=== PATIENT | male | born 2000 | race Two or more races ===

== ENCOUNTER 2024-05-23 11:55 | Emergency (ER) | payer MEDICAID, SELFPAY ==
--- NOTE | 2024-05-23 12:09 | XR_ITS ---
Examination: CT lumbar spine, without contrast. 2-D sagittal reconstructions. 2-D coronal reconstructions. 3-D reconstructions. Date and time of exam:May 23, 2023 1258 hours INDICATIONS: Onset low back pain radiating to the right leg beginning several weeks ago CTDI: vol (mGy):21.7 DLP: (mGycm):677 Technique: Multiple 1.25 mm axial sections of the lumbar spine without intravenous contrast have been obtained. 2-D sagittal and coronal reconstructions have been obtained. 3-D reconstructions have been obtained. Low dose protocols were performed. One or more of the following dose reduction techniques were used; automated exposure control, adjustment of the mA and/or KV according to patient size, use of iterative reconstruction technique. Findings: Adequate alignment lumbar vertebral bodies on the lateral view No lumbar acute fracture Mild diffuse lumbar disc narrowing No spondylolisthesis L5-S1 4 mm central lumbar disc bulge L4-L5 no disc protrusion L3-L4 no disc protrusion L2-L3 no disc protrusion L1-L2 no disc protrusion IMPRESSION: L5-S1 4 mm central lumbar disc bulge MRI lumbar spine follow-up would best assess for soft tissue acquired spinal stenosis producing radicular right leg symptoms
[2024-05-23 12:10] VITALS: BP 150/108; PULSE 103; RESP 20; TEMP 36.5; O2SAT 98; BMI 26.8
[2024-05-23] MEDS: LIDOCAINE 5% 1 PATCH 2 PATCH TOP (12:41)
[2024-05-23] MEDS: HYDROcodone/APAP 5/325 TABLET 2 TAB PO (12:41)
[2024-05-23 14:27] VITALS: BP 134/83; PULSE 82; RESP 18; TEMP 36.6; O2SAT 99
--- NOTE | 2024-05-23 15:21 | EDNOTE_ITS ---
ED General RME/HPI General Chief complaint: Hip Injury/Pain Stated complaint: Right hip pain, right leg pain x 2 months Time Seen by Provider: 05/23/24 11:58 Arrival date/time: 05/23/24 11:55 RME / HPI RME / HPI narrative: This section includes all my notes and documentations, including HPI, PE, and ED course. Lyndon Vazquez MD HPI: 24-year-old male here to be evaluated with a couple month history of right-sided low back pain. Worse in the past few days with radiation into the right lower extremity. Reports sharp and stabbing pain and burning. Reports numbness and tingling. No paralysis. No loss of control of bladder or bowels. No saddle numbness. No other complaints. ROS: Gastrointestinal: negative except as documented in HPI. Genitourinary: negative except as documented in HPI. Musculoskeletal: negative except as documented in HPI. Skin: negative except as documented in HPI. Neurological: negative except as documented in HPI. Physical Exam: General: Alert and oriented. In obvious pain. Eyes: Conjunctivae and lids clear. Lungs: No respiratory distress. Abdomen: Soft and nontender. Normal bowel sounds. No distension. No rebound or guarding. Back: Equivocal lumbar midline tenderness. Limited range of motion due to pain. Right straight leg raise equivocal. Legs: No clubbing, cyanosis, edema. Skin: Warm and dry. Neuro: Alert and oriented X 3. No peripheral motor deficits. My review of the lumbar spine CT report is L5-S1 disc bulging. At this point, diagnoses include sciatica. Treatment here included [place] and lidocaine patches. He felt better. Recommended more outpatient care and workup. Based on my best medical judgment, made decision no further evaluation or treatment indicated at this time. Patient understands and agrees to the discharge instructions customized and printed, see below. Lyndon Vazquez MD Related Data Previous Rx's ?Medication ?Instructions ?Recorded albuterol sulfate 90 mcg/actuation 2 puff inhalation QID #8.5 grams 12/08/21 aerosol inhaler cetirizine 10 mg capsule (Zyrtec) 10 mg PO QDAY PRN allergy symptoms 12/08/21 #30 caps sodium chloride 0.65 % nasal spray 2 spray intranasal QID #88 mL 12/08/21 aerosol (Saline Nasal) acetaminophen 300 mg-codeine 30 mg 2 tab PO TID PRN pain #20 tabs 05/23/24 tablet lidocaine 5 % topical patch 2 patch topical QDAY PRN pain #30 05/23/24 (Lidoderm) ea Allergies Allergy/AdvReac Type Severity Reaction Status Date / Time No Known Allergies Allergy Verified 11/14/22 14:37 Course Quality Measures none Orders Category Date Time Status CT lumbar spine wo con Stat Exams 05/23/24 12:09 Completed HYDROcodone*/APAP 5/325 [[place] 5/325] Med 05/23/24 12:09 Discontinued 2 tab PO X1 STA Lidocaine 5% Patch Med 05/23/24 12:09 Discontinued 2 patch TOP X1 ONE Vital Signs Vital signs: Vital Signs Temperature 97.7 F 05/23/24 12:10 Pulse Rate 103 H 05/23/24 12:10 Respiratory Rate 20 05/23/24 12:10 Blood Pressure 150/108 H 05/23/24 12:10 Pulse Oximetry (%) 98 05/23/24 12:10 Oxygen Delivery Method Room Air 05/23/24 12:10 MDM Patient data External records reviewed:: None Clinical information provided by:: patient Social determinants that could affect healthcare access:: none Patient has the following chronic illnesses:: None How is presenting disease/condition affected by chronic disease/condition?: no chronic disease Evaluation data The following diagnostics were reviewed and interpreted by me:: radiology exam(s) Lab and/or radiology exams considered but not ordered:: None Interpretation Summary: L5-S1 disc bulging Medications Medications considered but not ordered:: None Medication administrations:: Medication Administration History Discontinued Medications Hydrocodone Bitart/Acetaminophen (Hydrocodone/Apap 5/325 Tablet) 2 tab PO X1 STA Stop: 05/23/24 12:10 Last Admin: 05/23/24 12:41 Dose: 2 tab Documented By: OA Lidocaine (Lidocaine 5% 1 Patch) 2 patch TOP X1 ONE Stop: 05/23/24 12:10 Last Admin: 05/23/24 12:41 Dose: 2 patch Documented By: OA See charting Consultations Consultation(s) initiated? (list below): No Diagnosis Differential Diagnosis ED Complaint MDM: Lumbar spinal stenosis, lumbar sprain/strain Most likely diagnosis given after review of the tests above:: Lumbar spinal stenosis Admission Indicated Admission indicated?: not indicated Explain why admission is indicated or not indicated:: No criteria for admission Admission Request Was there a request for admission?: No Disposition Plan Disposition Plan: Discharge Discharge Attestation Discharge Attestation: The patient and all family members were given an opportunity to ask questions and understood the discharge instructions. Discharge instructions specifically effects, indications for sooner follow up or return to the emergency department, and the expected course of current diagnosis. Patient condition: Stable Medical Decision Making Differential Diagnosis Differential Diagnosis: Lumbar spinal stenosis, lumbar sprain/strain Discharge Plan Plan Patient Disposition: HOME (Self Care) Prescriptions/Referrals Prescriptions/Med Rec: New acetaminophen-codeine 300-30 mg tablet 2 tab PO TID MDD 6 PRN (Reason: pain) Qty: 20 0RF lidocaine [Lidoderm] 5 % adhesive patch,medicated 2 patch topical QDAY PRN (Reason: pain) Qty: 30 0RF Rx Instructions: leave on most painful area for up to 12 hrs No Action albuterol sulfate 90 mcg/actuation HFA aerosol inhaler 2 puff inhalation QID Qty: 8.5 0RF Saline Nasal 0.65 % aerosol,spray 2 spray intranasal QID Qty: 88 0RF Zyrtec 10 mg capsule 10 mg PO QDAY PRN (Reason: allergy symptoms) Qty: 30 0RF Referrals: No Primary/Family,Physician [Primary Care Provider] - In 1 week Problem List Clinical Impression: Sciatica of right side Patient/Caregiver Discharge Instructions Discharge Activity: activity as tolerated Education Materials: ED Sciatica Additional Instructions: Discharge Instructions from Dr. Vazquez: --After evaluation, there is no emergency, such as complete compression of your spinal cord needing emergent surgery.? --We are dealing with Sciatica (same as Lumbar Radiculopathy or Spinal Stenosis) where pinched nerve is causing your symptoms.? --This condition is difficult because normal pain medications don?t work very well on nerve pain. --Despite the pain, try to resume your normal chores and activities.? Because inactivity is terrible for this condition.? And activity won?t make your condition worse.? Use a cane of stick in your left hand to help stand and walk.? --Use Ibuprofen and Tylenol with codeine and lidocaine patches as needed.? Don't expect the pain to go away completely, hoping to take the edge off.?? --When resting and sleeping, try left sided position (with your knees to your chest and bending forward).? This can take some pressure off the nerve and help your pain. --Apply ice or heat if helpful. --See a private doctor (outside the ER) on 05/24/2024 for further care. Ask to help you get more care not available here in the ER.? Such as MRI imaging, physical therapy, and referrals to see specialists.? Some choose to have surgery for this condition. But you need to have MRI imaging to confirm the diagnosis and assess the severity to get the best treatments. --Seek immediate medical care with paralysis in your foot, losing control of your bladder or bowels, saddle numbness (anal numbness), or with any concerns.?? Print Language: Norwegian Stand Alone Forms: Glenda Award Info., Work/School Release, Patient Portal Info Letter
== END 2024-05-23 14:27 | disposition home or self-care (01) ==
PROVIDERS: Emergency Provider Emergency Medicine
DX: M54.41 Lumbago with sciatica, right side (principal)
CPT/HCPCS: 72131; 99284; A9270

== ENCOUNTER 2024-08-11 08:00 | Emergency (ER) | payer MEDICAID, SELFPAY ==
[2024-08-11 08:01] VITALS: BMI 25.0
[2024-08-11 08:41] VITALS: BP 124/77; PULSE 84; RESP 18; TEMP 36.7; O2SAT 99
[2024-08-11] MEDS: ONDANSETRON ODT 4 MG TABRAP PO (08:57)
[2024-08-11] MEDS: CYCLObenzaPRINE 5 MG TABLET 10 MG PO (08:57)
--- NOTE | 2024-08-11 08:57 | EDNOTE_ITS ---
<Statement entered by Aliza Benoit MD - 08/22/24 19:25> As co-signing physician, I was present and available for consult prn. I concur with the plan and care as documented by the midlevel provider. ED Back Injury Pain RME/HPI General Chief Complaint: Back Pain/Injury Stated Complaint: RIGHT LEG PAIN FOR 2 YEARS, HX SCIATICA Time Seen by Provider: 08/11/24 08:20 Arrival date/time: 08/11/24 08:00 This is a 24-year-old male that comes in with complaints of lower back pain worse to the lateral muscles of the right lower back and right buttock. Patient states pain radiates down his right leg. Patient ambulatory. Patient denies numbness tingling. Patient states he has had this pain on and off for the past 2 years. Patient states he has been diagnosed with sciatica in the past. Patient states it feels like sciatica. Patient denies any loss of bowel or bladder control. Patient denies any saddle anesthesia. Patient denies urinary symptoms. Patient denies any other symptoms. Patient denies trauma Related Data Previous Rx's ?Medication ?Instructions ?Recorded albuterol sulfate 90 mcg/actuation 2 puff inhalation Q ID #8.5 grams 12/08/21 aerosol inhaler cetirizine 10 mg capsule (Zyrtec) 10 mg PO QDAY PRN al lergy symptoms 12/08/21 #30 caps sodium chloride 0.65 % nasal spray 2 spray intranasal QID #88 mL 12/08/21 aerosol (Saline Nasal) acetaminophen 300 mg-codeine 30 mg 2 tab PO TID PRN pa in #20 tabs 05/23/24 tablet lidocaine 5 % topical patch 2 patch topical QDAY PRN p ain #30 05/23/24 (Lidoderm) ea cyclobenzaprine 10 mg tablet 10 mg PO BID #20 tabs 03/27 ibuprofen 800 mg tablet 800 mg PO Q6H PRN pain #14 t abs 08/11/24 Allergies Allergy/AdvReac Type Severity Reaction Status Date / Time No Known Allergies Allergy Verified 08/11/24 08:02 Review of Systems Review of Systems Systems Reviewed: All systems reviewed, normal except as documented Past Medical History Past Medical History NEUROLOGIC: Negative Neurological Disorders CARDIAC: Negative Cardiac Disorders or Congestive Heart Failure RESPIRATORY: Negative Chronic Obstructive Pulmonary Disease (COPD) GASTROINTESTINAL: Negative Gastrointestinal Disorders GENITOURINARY: Negative Genitourinary Disorders or Renal Disease MUSCULOSKELETAL: Negative Musculoskeletal Disorders ENDOCRINE: Negative Endocrine Disorders, Diabetes Mellitus Type 1 or Diabetes Mellitus Type 2 HEMATOLOGIC: Negative Blood Disorders Social History SMOKING STATUS: Former smoker Travel History EBOLA RISK: No ED Exam General General appearance: Present alert and in no apparent distress Head Head exam: Present atraumatic Eye Eye exam: Present normal appearance, PERRL and EOMI ENT ENT exam: Present normal exam, normal oropharynx and mucous membranes moist Neck Neck exam: Present normal inspection, full ROM and trachea midline Chest Chest inspection: Present normal inspection and symmetric chest wall rise Respiratory Respiratory exam: Present normal lung sounds bilaterally Cardiovascular Cardiovascular exam: Present regular rate and normal rhythm Abdominal Exam Abdominal exam: Present soft Extremities Exam Extremities exam: Present normal inspection and full ROM Back Exam Back exam: Present normal inspection and full ROM Neurological Exam Neurological exam: Present alert, oriented X3 and CN II-XII intact Psychiatric Psychiatric exam: Present normal affect and normal mood Skin Skin exam: Present warm, dry, intact and normal color Course Quality Measures none Orders Category Date Time Status CYCLObenzaPRINE [Flexeril] Med 08/11/24 08:51 Discontinued 10 mg PO X1 ONE HYDROcodone*/APAP 5/325 [[place] 5/325] Med 08/11/24 08:51 Discontinued 1 tab PO X1 ONE HYDROcodone*/APAP 5/325 [[place] 5/325] Med 08/11/24 08:51 Discontinued 1 tab PO X1 ONE HYDROcodone*/APAP 5/325 [[place] 5/325] Med 08/11/24 10:05 Discontinued 1 tab PO X1 ONE Ketorolac Inj [Toradol Inj] Med 08/11/24 09:07 Discontinued 60 mg IM X1 ONE Ondansetron Odt [Zofran Odt] Med 08/11/24 08:51 Discontinued 4 mg PO X1 ONE Vital Signs Vital signs: Vital Signs Temperature 98.0 F 08/11/24 08:41 Pulse Rate 84 08/11/24 08:41 Respiratory Rate 18 08/11/24 08:41 Blood Pressure 124/77 08/11/24 08:41 Pulse Oximetry (%) 99 08/11/24 08:41 Oxygen Delivery Method Room Air 08/11/24 08:41 Back Pain / Injury MDM Narrative MDM Narrative:: Patient given Toradol IM, [place], and Flexeril. For pain. Patient told to get rest. Patient told to follow-up with primary provider in 1 to 2 days. Patient told that he may need an CT MRI of his lower back pain continues. Patient told to come back to the emergency room if symptoms change or worsen. Patient data External records reviewed:: [facility] previous records Clinical information provided by:: patient Social determinants that could affect healthcare access:: none Patient has the following chronic illnesses:: none How is presenting disease/condition affected by chronic disease/condition?: no chronic disease Evaluation data The following diagnostics were reviewed and interpreted by me:: other (specify) (none ) Lab and/or radiology exams considered but not ordered:: none Interpretation Summary: see note Medications / Prescriptions Medications or Prescriptions considered but not ordered:: none Medication administrations:: Medication Administration History Discontinued Medications Hydrocodone Bitart/Acetaminophen (Hydrocodone/Apap 5/325 Tablet) 1 tab PO X1 ONE Stop: 08/11/24 08:52 Last Admin: 08/11/24 10:29 Dose: Not Given Documented By: LORETTA Non-Admin Reason: Cancelled by Provider Hydrocodone Bitart/Acetaminophen (Hydrocodone/Apap 5/325 Tablet) 1 tab PO X1 ONE Stop: 08/11/24 08:52 Last Admin: 08/11/24 08:58 Dose: 1 tab Documented By: LORETTA Hydrocodone Bitart/Acetaminophen (Hydrocodone/Apap 5/325 Tablet) 1 tab PO X1 ONE Stop: 08/11/24 10:06 Last Admin: 08/11/24 10:29 Dose: 1 tab Documented By: LORETTA Cyclobenzaprine HCl (Cyclobenzaprine 5 Mg Tablet) 10 mg PO X1 ONE Stop: 08/11/24 08:52 Last Admin: 08/11/24 08:57 Dose: 10 mg Documented By: LORETTA Ketorolac Tromethamine (Ketorolac Inj 60 Mg/2 Ml Vial) 60 mg IM X1 ONE Stop: 08/11/24 09:08 Last Admin: 08/11/24 09:16 Dose: 60 mg Documented By: LORETTA Ondansetron HCl (Ondansetron Odt 4 Mg Tabrap) 4 mg PO X1 ONE; Protocol Stop: 08/11/24 08:52 Last Admin: 08/11/24 08:57 Dose: 4 mg Documented By: LORETTA see mar Consultations Consultation(s) initiated? (list below): No Diagnosis Most likely diagnosis given after review of the tests above:: lumbar radiculopathy Admission Indicated Admission indicated?: not indicated Admission Request Was there a request for admission?: No Disposition Plan Disposition Plan: Discharge Discharge Attestation Discharge Attestation: The patient and all family members were given an opportunity to ask questions and understood the discharge instructions. Discharge instructions specifically effects, indications for sooner follow up or return to the emergency department, and the expected course of current diagnosis. Patient condition: Stable Discharge Plan Plan Patient Disposition: HOME (Self Care) Patient condition on transfer: Stable Prescriptions/Referrals Prescriptions/Med Rec: New ibuprofen 800 mg tablet 800 mg PO Q6H PRN (Reason: pain) Qty: 14 0RF cyclobenzaprine 10 mg tablet 10 mg PO BID Qty: 20 0RF No Action albuterol sulfate 90 mcg/actuation HFA aerosol inhaler 2 puff inhalation QID Qty: 8.5 0RF Saline Nasal 0.65 % aerosol,spray 2 spray intranasal QID Qty: 88 0RF Zyrtec 10 mg capsule 10 mg PO QDAY PRN (Reason: allergy symptoms) Qty: 30 0RF acetaminophen-codeine 300-30 mg tablet 2 tab PO TID MDD 6 PRN (Reason: pain) Qty: 20 0RF lidocaine [Lidoderm] 5 % adhesive patch,medicated 2 patch topical QDAY PRN (Reason: pain) Qty: 30 0RF Rx Instructions: leave on most painful area for up to 12 hrs Problem List Clinical Impression: Back pain, Lumbar radiculopathy Patient/Caregiver Discharge Instructions Discharge Activity: activity as tolerated Education Materials: ED Back Pain (Acute or Chronic) Additional Instructions: Follow up with primary provider in 1-2 days. Come back to ED if symptoms change or worsen. Please follow-up and make an appointment with primary provider if this continues to happen. Patient may need CT or MRI of lower back. Print Language: Barbadian Stand Alone Forms: Glenda Award Info., Patient Portal Info Letter PA/MARIBEL Supervising Physician PA/SUPPOSITORY MOLDING MACHINE OPERATOR Supervising Physician: carlos eduardo
[2024-08-11] MEDS: HYDROcodone/APAP 5/325 TABLET 1 TAB PO ×2 (08:58→10:29)
[2024-08-11] MEDS: KETOROLAC INJ 60 MG/2 ML VIAL IM (09:16)
[2024-08-11 10:31] VITALS: BP 103/85; PULSE 71; RESP 20; TEMP 36.5; O2SAT 100
== END 2024-08-11 10:32 | disposition home or self-care (01) ==
PROVIDERS: Emergency Provider Emergency Medicine
DX: M54.16 Radiculopathy, lumbar region (principal)
CPT/HCPCS: 96372; 99283; J1885; Q0162; A9270

== ENCOUNTER 2024-08-21 09:17 | Outpatient (AMB) | payer MEDICAID, SELFPAY ==
[2024-08-21 09:32] VITALS: BP 129/82; PULSE 98; RESP 16; TEMP 37.1; O2SAT 96; BMI 28.8
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
== END 2024-08-21 10:19 | disposition home or self-care (01) ==
LOC: HODAHC 09:17
PROVIDERS: Supervising Provider Internal Medicine; Visit Provider Student in an Organized Health Care Education/Training Program
DX: M51.372 Other intervertebral disc degeneration, lumbosacral region with discogenic back pain and lower extremity pain (principal)
CPT/HCPCS: 99214; G0463